=== PATIENT | female | born 1950 | race Caucasian/White ===

== ENCOUNTER → 2017-11-05 10:39 | Outpatient (CLI) | payer MEDICARE, SELFPAY ==
--- NOTE | 2017-11-08 08:07 | PM.PFT.1 ---
Pulmonary Function Test Referral & Results Date Patient Seen: 11/05/17 Requesting provider: Semaj Villanueva Indication: Dyspnea Results: The spirometry demonstrates an FVC of 3.11 L which is 107% of predicted. The FEV1 was measured at 2.52 L which is 115% of predicted. The FEV1/FVC ratio was 81 which is 106% of predicted. No bronchodilator was administered Lung volumes show an SVC of 3.24 L which is 116% of predicted. The diffusing capacity was measured at 18.93 which is 82% of predicted. No hemoglobin value was provided, so no correction for potential anemia could be made, if appropriate. The maximum voluntary ventilation was normal. Interpretation: This study is probably normal. Spirometry is certainly normal. There is minimal reduction in diffusing capacity that may or may not represent some element of disease at the capillary alveolar level Clinical correlation suggested
== END ==
PROVIDERS: Visit Provider Student in an Organized Health Care Education/Training Program
DX: R04.2 Hemoptysis (principal)
CPT/HCPCS: 94010; 94726; 94729